=== PATIENT | male | born 1985 | race Caucasian/White ===

== ENCOUNTER 2023-04-14 16:51 | Emergency (ER) | payer BC ==
[~2023-04-14] VITALS: Ht 188 cm; Wt 83.9 kg
[2023-04-14 16:53] VITALS: BP 148/76
[2023-04-14] MEDS ORDERED: IBUP-1022 PO (19:30)
== END 2023-04-14 19:38 | disposition home or self-care (01) ==
LOC: M ED 16:51
DX: S62.637A Displaced fracture of distal phalanx of left little finger, initial encounter for closed fracture (principal); F10.10 Alcohol abuse, uncomplicated; Y92.410 Unspecified street and highway as the place of occurrence of the external cause; Y93.51 Activity, roller skating (inline) and skateboarding; Z79.1 Long term (current) use of non-steroidal anti-inflammatories (NSAID)

== ENCOUNTER → 2023-04-24 | Outpatient (CLI) | payer BC ==
[~2023-04-24] MED LIST: IBUP-1022 PO
== END ==
LOC: M SOG 13:30
PROVIDERS: ATTEND Physician Assistant
DX: S62.346A Nondisplaced fracture of base of fifth metacarpal bone, right hand, initial encounter for closed fracture (principal); X58.XXXA Exposure to other specified factors, initial encounter; Y92.9 Unspecified place or not applicable; Y93.9 Activity, unspecified; Y99.9 Unspecified external cause status

== ENCOUNTER → 2023-05-15 | Outpatient (CLI) | payer BC | LOC: M SOG 09:00 | PROVIDERS: ATTEND Physician Assistant | DX: S62.397D Other fracture of fifth metacarpal bone, left hand, subsequent encounter for fracture with routine healing (principal) ==

== ENCOUNTER → 2023-06-16 | Outpatient (CLI) | payer BC | LOC: M SOG 15:12 | PROVIDERS: ATTEND Physician Assistant | DX: S62.357D Nondisplaced fracture of shaft of fifth metacarpal bone, left hand, subsequent encounter for fracture with routine healing (principal); S62.643A Nondisplaced fracture of proximal phalanx of left middle finger, initial encounter for closed fracture; X58.XXXA Exposure to other specified factors, initial encounter; Y92.9 Unspecified place or not applicable; Y93.9 Activity, unspecified; Y99.9 Unspecified external cause status ==